=== PATIENT | male | born 1990 | race Two or more races ===

== ENCOUNTER 2019-10-09 21:10 | Emergency (ER) | payer SELFPAY ==
[~2019-10-09] VITALS: Ht 167.6 cm; Wt 117.9 kg
--- NOTE | 2019-10-09 21:36 | NUR ---
PATIENT CAME TO ER BED 7 C/O HEADACHE/ MIGRAINE SINCE 4x DAYS AGO. PATIENT STATES THAT HE HAS RECENTLY GONE BACK TO THE GYM AND HAD FELT HEADACHES SINCE. PATIENT STATES HE HAS BEEN WELL-HYDRATED BY DRINKING WATER. PATIENT DENIES TAKING ANY DRUGS OR SUPPLEMENTS. AAOX4. NO SOB. BREATHING EVENLY AND UNLABORED ON ROOM AIR. CONNECTED TO MONITOR. Addendum: 10/09/19 at 2139 by BAR PATIENT STATES THAT HIS HEADACHE IS ON AND OFF, AND WHEN HE HAS HEADACHE, HE HAS BLURRY VISIONS AND PREVENTS HIM FROM CONTINUING HIS DAILY ACTIVITY.
[2019-10-09] MEDS ORDERED: IV NS 0.9% 1,000 ML BAG IV ONE (22:00)
[2019-10-09] MEDS ORDERED: diphenhydrAMINE HCL 50 MG/ML VIAL IV ONE (22:00)
[2019-10-09] MEDS ORDERED: KETOROLAC TROMETHAMINE INJ 30 MG/ML VIAL IV ONE (22:00)
[2019-10-09] MEDS ORDERED: METOCLOPRAMIDE HCL 10 MG/2 ML VIAL IV ONE (22:00)
[2019-10-09] MEDS ORDERED: diphenhydrAMINE HCL 50 MG/ML VIAL ONE (22:03)
[2019-10-09] MEDS ORDERED: KETOROLAC TROMETHAMINE INJ 30 MG/ML VIAL ONE (22:03)
[2019-10-09] MEDS ORDERED: METOCLOPRAMIDE HCL 10 MG/2 ML VIAL ONE (22:03)
--- NOTE | 2019-10-09 23:28 | NUR ---
PATIENT'S MOTHER PICKED PATIENT UP.
--- NOTE | 2019-10-09 23:34 | NUR ---
Patient discharged to home in stable condition. Written and verbal after care instructions given. Patient verbalizes understanding of instruction.IV removed. Catheter intact and site benign. Pressure and 4x4 applied to site. No bleeding noted.Pt ambulatory with a steady gait
[2019-10-09 23:58] VITALS: BP 122/70
== END 2019-10-09 23:59 | disposition home or self-care (01) ==
LOC: ER 21:10
DX: G43.909 Migraine, unspecified, not intractable, without status migrainosus (principal)
CPT/HCPCS: 82962; 96374; 96375; 99284; J1200; J1885; J2765; J7030